=== PATIENT | female | born 1950 | race Caucasian/White ===

== ENCOUNTER 2016-10-25 09:13 | Emergency (ER) | payer OTHER ==
[~2016-10-25] VITALS: Ht 157.5 cm; Wt 105.0 kg
--- NOTE | 2016-10-25 09:17 | ED.REPORT ---
HPI-Extremity Problem Lower Date of Service Oct 25, 2016 ED Provider: Preston Yoder MD Pt is a 66 year old female with a hx of sciatic nerve pain and HTN presenting to the ED complaining of left knee pain radiating into her hip onset just prior to arrival while she was walking. She has had muscle pain in her knee for about a week, and then today she was taking her to chemo and as she was walking when she heard a pop in her knee. Pt is unable to bear weight on the knee due to pain. Denies any fall, twisting her knee, numbness, weakness, or swelling. She denies any hx of knee problems or surgeries. Nursing Notes Stated Complaint: LEFT KNEE PAIN Chief Complaint: Left knee pain Nursing Notes Reviewed: Yes Allergies: Coded Allergies: hydrocodone (Verified Allergy, Severe, Rash, 10/25/16) General Time Seen by MD: 09:16 Chief Complaint Knee injury left Hx Obtained From: Patient Arrived By: Walk-in Onset Occurred: Just prior to arrival Symptom Duration: Since onset Location: : Knee left Quality: Painful Severity: Current: Moderate Severity: Maximum: Severe Recent Healthcare: No recent doctor visit, No recent hospitalization Similar Sx Previous: No Past Medical History Past Medical History Sciatic nerve pain Reports: Hypertension Past Surgical History denies Smoking History Unknown if Ever Smoker Social History Other Social History: Good social support, Ambulatory Status Independent Review of Systems Musculoskeletal: Reports: Extremity pain, Joint pain, Denies: Extremity swelling, Joint swelling Neurologic: Denies: Numbness, Weakness Complete sys rev & neg: except as marked. Physical Exam Initial Vital Signs Vital Signs (First) Date Time Temp Pulse Resp B/P Pulse Ox O2 Delivery O2 Flow Rate FiO2 10/25/16 09:25 36.1 75 18 157/87 98 Room Air Initial VS: Reviewed General/Constitutional: Well-developed, Well-nourished Head / Eyes: Atraumatic, Normocephalic, PERRL ENT: Mucous membranes moist, Conjunctiva normal, No scleral icterus Neck: Supple, Non-tender, Full range of motion Respiratory: No respiratory distress Abdomen / GI: No distention Upper Extremities: Vascular intact, Neuro intact, No swelling, No tenderness Skin: Warm, Dry, No cyanosis Neurologic: Alert, Oriented, Nonfocal Psychiatric: Mood/affect normal, Behavior normal, Normal thought content Lower Extremity / Pelvis / MS: Full range of motion, No swelling, No erythema, No deformity, Neurologic intact, Vascular intact, No edema No warmth. Pt is able to fully flex and extend knee. Negative anterior and posterior drawer testing. Some crepitance with extension and flexion of knee. Interpretation & Diagnostics X-Ray Interpretation Xray Interpretation: IMPRESSION: 1. Mild degenerative joint disease. 2. Trace knee joint effusion. Dictated by: Nimo Barrett M.D. on 10/25/2016 at 9:48 X-Ray Ordered: Knee left Interpretation / Wet Read by: Interpret - Radiologist Re-Eval/Medical Decision Med Decision/Clinical Course Pt is a 66 year old female with a hx of sciatic nerve pain and HTN presenting to the ED complaining of left knee pain radiating into her hip onset just prior to arrival while she was walking. She has had muscle pain in her knee for about a week, and then today she was taking her to chemo and as she was walking when she heard a pop in her knee. Pt is unable to bear weight on the knee due to pain. Denies any fall, twisting her knee, numbness, weakness, or swelling. She denies any hx of knee problems or surgeries. Here in the emergency department the patient is afebrile, hemodynamically stable and in no apparent distress. Examination as above. The patient was treated with an ice pack and 30 IM Toradol reported symptom improvement. Plain films demonstrated no acute fracture or dislocation. There was no evidence of neurovascular injury. There is no evidence of fracture or dislocation. No evidence of septic arthritis. Overall presentation seems most consistent with muscle sprain. Examination not suggestive of ligamentous instability or meniscal injury. Provided with a knee immobilizer and crutches for comfort. Will follow up with primary care physician. Prior to discharge follow-up and return precautions were reviewed in detail with the patient who verbalized understanding and agreement with the plan. The patient was discharged in stable condition. Re-Evaluation/Progress : Time of Eval: 10:09 Patient Status: Condition improved Re-Evaluation/Progress Note: Discussed radiology results and plan for discharge. Pt understands and agrees. Counseled Regarding: Diagnosis, Lab results, Need for follow-up, When/why to return to ED Discharge & Departure Impression: Primary Impression: Left knee sprain Encounter type: initial encounter Involved ligament of knee: unspecified ligament Qualified Code: S83.92XA - Sprain of unspecified site of left knee, initial encounter Additional Impression: Hx of sciatica Disposition: Home Discharge Condition All VS Reviewed: Yes Condition: Improved Patient Instructions: Knee Sprain (ED) Additional Instructions: We think you have a muscle sprain. Take 600 mg ibuprofen as prescribed every 6 hours for pain. Return if you develop any new or worsening symptoms such as weakness, numbness, or tingling. Use hot packs and do stretches. Referrals: [facility] Scribe Attestation Portions of this note were transcribed by Danna Choi. I, Dr. Yoder personally performed the history, physical exam and medical decision-making; I reviewed and confirmed the accuracy of the information in the transcribed note. Signed by: Kelsi Miranda, 10/25/2016. copies to: [facility] Preston Yoder MD Oct 25, 2016 09:17 DANNA CHOI Oct 25, 2016 09:30
[2016-10-25 09:25] VITALS: BP 157/87; PULSE 75; RESP 18; O2SAT 98
--- NOTE | 2016-10-25 09:52 | DRSVH ---
PROCEDURE: X-RAY LEFT KNEE, THREE VIEWS ([id number]) INDICATIONS: knee pain TECHNIQUE: 3 views of the knee were acquired. COMPARISON: None. FINDINGS: Bones: No fractures or dislocations. No suspicious bony lesions. There is mild degenerative joint disease with joint space narrowing and osteophyte formation involving the medial femorotibial compart ment and patellofemoral compartment. Soft tissues: Trace joint effusion. No suspicious soft tissue calcifications. IMPRESSION: 1. Mild degenerative joint disease. 2. Trace knee joint effusion. Dictated by: Nimo Barrett M.D. on 10/25/2016 at 9:48 Approved by: Nimo Barrett M.D. on 10/25/2016 at 9:51
[2016-10-25 11:45] VITALS: BP 148/78; PULSE 78; RESP 16
== END 2016-10-25 11:48 | disposition home or self-care (01) ==
LOC: SED 09:13
DX: S83.8X2A Sprain of other specified parts of left knee, initial encounter (principal); X50.9XXA Other and unspecified overexertion or strenuous movements or postures, initial encounter; Y93.01 Activity, walking, marching and hiking; Y92.89 Other specified places as the place of occurrence of the external cause; Y99.8 Other external cause status; I10 Essential (primary) hypertension; Z87.39 Personal history of other diseases of the musculoskeletal system and connective tissue; Z88.5 Allergy status to narcotic agent
CPT/HCPCS: 73562; 96372; 99284; J1885